=== PATIENT | male | born 1955 | race Caucasian/White ===

== ENCOUNTER 2019-09-10 15:21 | Emergency (ER) | payer BC ==
[2019-09-10] MEDS ORDERED: Ibuprofen 800 MG Tab PO ONE (16:58)
--- NOTE | 2019-09-10 17:19 | EDM.PDOC ---
<Kaz Johnson - Last Filed: 09/10/19 17:33> ED HPI GENERAL MEDICAL PROBLEM - General Chief Complaint: Lower Extremity Injury/Pain Stated Complaint: R KNEE INJURY Time Seen by Provider: 09/10/19 16:27 Source of Information: Reports: Patient History Limitations: Reports: No Limitations - History of Present Illness INITIAL COMMENTS - FREE TEXT/NARRATIVE: 64 year old male with complaints of right knee injury while hunting today. States that he was walking in a field today when he stepped right into a moriah hole with his right leg all the way up to his knee. He reports that his body moved laterally to the right and his knee and lower leg moved medially. He reports hearing a popping sound. The patient states that he is able to ambulate on this leg, but that it is very weak and feels like its going to give way medially. 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 Treatments METAL BUFFER: Reports: Other (see below) Other Treatments METAL BUFFER: ice Right Knee Pain Score (Numeric/FACES): 8 - Related Data Allergies Allergy/AdvReac Type Severity Reaction Status Date / Time No Known Allergies Allergy Verified 09/10/19 15:42 Home Meds: Home Meds Aspirin [Halfprin] 81 mg PO DAILY 09/10/19 [History] Gabapentin [Neurontin] 300 mg PO TID 09/10/19 [History] Lisinopril 5 mg PO DAILY 09/10/19 [History] Magnesium Oxide [Magnesium] 800 mg PO BEDTIME 09/10/19 [History] Meloxicam 15 mg PO DAILY 09/10/19 [History] Omeprazole Magnesium [Prilosec] 20 mg PO DAILY 09/10/19 [History] Tamsulosin [Flomax] 0.4 mg PO DAILY 09/10/19 [History] atorvaSTATin [Lipitor] 10 mg PO DAILY 09/10/19 [History] Past Medical History Cardiovascular History: Reports: High Cholesterol, Hypertension Respiratory History: Reports: Sleep Apnea Musculoskeletal History: Reports: Arthritis Neurological History: Reports: Neuropathy, Peripheral - Past Surgical History Musculoskeletal Surgical History: Reports: Knee Replacement Social & Family History - Tobacco Use Smoking Status *Q: Never Smoker - Caffeine Use Caffeine Use: Reports: Coffee, Soda - Recreational Drug Use Recreational Drug Use: No Review of Systems - Review of Systems Review Of Systems: Comprehensive ROS is negative, except as noted in HPI. Constitutional: Reports: No Symptoms Eyes: Reports: No Symptoms Ears: Reports: No Symptoms Nose: Reports: No Symptoms Mouth/Throat: Reports: No Symptoms Respiratory: Reports: No Symptoms Cardiovascular: Reports: No Symptoms GI/Abdominal: Reports: No Symptoms Genitourinary: Reports: No Symptoms Musculoskeletal: Reports: Joint Pain (right knee very painful with movement and ambulation), Joint Swelling (right knee swollen medially) Skin: Reports: No Symptoms Neurological: Reports: No Symptoms Psychiatric: Reports: No Symptoms ED EXAM, GENERAL - Physical Exam Exam: See Below Exam Limited By: No Limitations General Appearance: Alert, WD/WN, No Apparent Distress Ears: Normal External Exam, Hearing Grossly Normal Nose: Normal Inspection Throat/Mouth: Normal Inspection, Normal Lips, Normal Voice, No Airway Compromise Head: Atraumatic Neck: Normal Inspection Respiratory/Chest: No Respiratory Distress, Lungs Clear, Normal Breath Sounds, Chest Non-Tender Cardiovascular: Regular Rate, Rhythm, No JVD, No Murmur GI/Abdominal: Normal Bowel Sounds, Soft, Non-Tender (Male) Exam: Deferred Rectal (Males) Exam: Deferred Back Exam: Normal Inspection Extremities: Normal Inspection, Joint Swelling (right knee swollen medially) Neurological: Alert, Oriented, Normal Cognition, No Motor/Sensory Deficits Psychiatric: Normal Affect, Normal Mood Skin Exam: Warm, Dry, Intact, Normal Color, No Rash Lymphatic: No Adenopathy Course - Vital Signs Last Recorded V/S: Last Vital Signs Temp 97.1 F 09/10/19 15:48 Pulse 63 09/10/19 15:48 Resp 20 09/10/19 15:48 BP 125/91 H 09/10/19 15:48 Pulse Ox 99 09/10/19 15:48 - Orders/Labs/Meds Orders: Active Orders 24 hr Category Date Time Status Knee Min 4V Rt [CR] Stat Exams 09/10/19 16:38 Taken Durable Medical Equipment for Discharge [DME for Oth 09/10/19 17:18 Ordered Discharge] [COMM] Stat Meds: Medications Discontinued Medications Generic Name Dose Route Start Last Admin Trade Name Freq PRN Reason Stop Dose Admin Ibuprofen 800 mg 09/10/19 16:58 09/10/19 17:05 Motrin PO 09/10/19 16:59 800 mg ONETIME ONE Administration Departure - Departure Disposition: Home, Self-Care 01 Clinical Impression: Right knee sprain - Discharge Information Instructions: Knee Sprain, Adult Referrals: PCP,Not In Area [Primary Care Provider] - Forms: ED Department Discharge Additional Instructions: Knee mobilizer and crutches at all times. Nonweightbearing. Ice the knee as much as you are able to. [id number] Tylenol as needed for pain. Follow-up with orthopedics as soon as you're able to when you return home. Please return to the ER if your symptoms change or worsen. - My Orders Last 24 Hours: My Active Orders 09/10/19 17:18 Durable Medical Equipment for Discharge [DME for Discharge] [COMM] Stat - Assessment/Plan Last 24 Hours: My Active Orders 09/10/19 17:18 Durable Medical Equipment for Discharge [DME for Discharge] [COMM] Stat <RuchiCaitlin Aneta - Last Filed: 09/10/19 20:20> ED HPI GENERAL MEDICAL PROBLEM - History of Present Illness INITIAL COMMENTS - FREE TEXT/NARRATIVE: I have seen the patient and agree with the HPI as documented by JIM Gorman. Review of Systems - Review of Systems Review Of Systems: See Below ED EXAM, GENERAL - Physical Exam Exam: See Below Peripheral Pulses: 2+: Posterior Tibial (L), Posterior Tibial (R), Dorsalis Pedis (L), Dorsalis Pedis (R) Extremities: Normal Inspection, Joint Swelling, Other (tenderness to palpation to the right medial knee, negative anterior and posterior drawer signs, no pain with valgus and varus stress testing. ) Course - Radiology Interpretation Free Text/Narrative:: xrays of the right knee show right knee replacement, no acute fractures or dislocations. Reviewed by myself and dr. Kirkpatrick. Formal radiology read pending. - Re-Assessments/Exams Free Text/Narrative Re-Assessment/Exam: 09/10/19 17:18 I have seen the patient and agree with the HPI, ROS and PE as documented by JIM Gallagher. I reviewed the xrays with the patient. Concern he may have torn his MCL. He is from [place] and plans to go home Thursday. I will get him crutches and a knee immobilizer. Discharge instructions as documented. Departure - Departure Time of Disposition: 17:22 Condition: Fair - Discharge Information *PRESCRIPTION DRUG MONITORING PROGRAM REVIEWED*: No *COPY OF PRESCRIPTION DRUG MONITORING REPORT IN PATIENT BRIAN: No
--- NOTE | 2019-09-12 06:36 | CR ---
Right knee: Four views of the right knee were obtained. Comparison: No previous knee exam. Knee prosthesis is seen. Components are aligned. No fracture, dislocation or other bony abnormality is seen. Impression: 1. Knee prosthesis. 2. Nothing acute is seen on right knee exam. Diagnostic code #2 This report was dictated in [place] Standard Time
== END 2019-09-10 17:40 | disposition home or self-care (01) ==
LOC: JD.ED 15:21
DX: S83.91XA Sprain of unspecified site of right knee, initial encounter (principal); I10 Essential (primary) hypertension; E78.00 Pure hypercholesterolemia, unspecified; Z79.899 Other long term (current) drug therapy; Z79.82 Long term (current) use of aspirin; W22.8XXA Striking against or struck by other objects, initial encounter
CPT/HCPCS: 73564; 99284; A9270; 99282